=== PATIENT | male | born 1995 | race American Indian/Alaskan Native ===

== ENCOUNTER 2017-07-02 20:35 | Emergency (ER) | payer SELFPAY ==
[2017-07-02 20:55] VITALS: BP 112/65
== END 2017-07-02 21:20 | disposition left against medical advice (07) ==
LOC: ED 20:35
DX: F41.0 Panic disorder [episodic paroxysmal anxiety] (principal); Z53.21 Procedure and treatment not carried out due to patient leaving prior to being seen by health care provider